=== PATIENT | female | born 2005 | race Caucasian/White ===

== ENCOUNTER 2023-03-11 07:27 | Emergency (ER) | payer MEDICAID ==
[2023-03-11] MEDS ORDERED: LORazepam 1 MG Tab PO ONE (08:00)
== END 2023-03-11 10:25 | disposition home or self-care (01) ==
LOC: JD.ED 07:27
DX: O99.340 Other mental disorders complicating pregnancy, unspecified trimester (principal); F41.1 Generalized anxiety disorder; Z88.8 Allergy status to other drugs, medicaments and biological substances; Z3A.01 Less than 8 weeks gestation of pregnancy
CPT/HCPCS: 36415; 80053; 83735; 84443; 84703; 85025; 93005; 99285; A9270; 93010; 99283

== ENCOUNTER 2023-06-22 06:00 | Emergency (ER) | payer MEDICAID | END 2023-06-22 06:35 | disposition home or self-care (01) | LOC: JD.ED 06:00 | DX: O99.891 Other specified diseases and conditions complicating pregnancy (principal); R07.89 Other chest pain | CPT/HCPCS: 93005; 93010; 99283; 99284 ==

== ENCOUNTER 2023-11-23 18:42 | Inpatient (IN) | payer MEDICAID ==
[2023-11-23] MEDS ORDERED: Nalbuphine HCl 10 MG/ 1ML Amp IVPUSH PRN (19:08)
[2023-11-23] MEDS ORDERED: Lidocaine 1% 50 ML MDV INJECT PRN (19:08)
[2023-11-23] MEDS ORDERED: Sodium Chloride 0.9% 10 ML Syringe FLUSH PRN (19:08)
[2023-11-23] MEDS ORDERED: Misoprostol 25 MCG (1/4 of 100 MCG) Tab VAG ONE (19:08)
[2023-11-23] MEDS ORDERED: Oxytocin/Lactated Ringers 30 UNIT/500 ML BAG IV SCH (19:15)
[2023-11-23 19:27] LABS: BASOPHILS PERCENT AUTO 0.2 % (0.0-1.0); EOSINOPHILS ABSOLUTE AUTO 0.2 K/mm3 (0.0-0.4); EOSINOPHILS PERCENT AUTO 1.9 % (0.0-6.0); HEMATOCRIT 34.7 % (37.0-47.0); HEMOGLOBIN 11.9 gm/dl (12.0-16.0); IMMATURE GRAN ABSOLUTE AUTO 0.05 K/mm3 (0.00-0.05); IMMATURE GRAN PERCENT AUTO 0.5 % (0.0-0.4); MEAN CORPUSCULAR HEMOGLOBIN 32.6 pg (28.0-32.0); MEAN CORPUSCULAR HGB CONC 34.3 g/dl (32.0-36.0); MEAN CORPUSCULAR VOLUME 95.1 fl (83.0-99.0); MEAN PLATELET VOLUME 10.2 fl (9.4-12.3); MONOCYTES ABSOLUTE AUTO 0.7 K/mm3 (0.0-0.8); MONOCYTES PERCENT AUTO 7.4 % (0.0-8.0); PLATELET COUNT,PLT 183 K/mm3 (150-400); RED BLOOD CELL COUNT 3.65 M/mm3 (4.10-5.30); WHITE BLOOD CELL COUNT,WBC 9.94 K/mm3 (3.9-11.3)
[2023-11-23] MEDS ORDERED: Calcium Carbonate 500 MG Tab.Chew PO PRN (21:44)
[2023-11-23] MEDS ORDERED: Promethazine 25 MG Tab PO PRN (22:25)
[2023-11-23] MEDS: Lactated Ringers 1,000 ML IV SCH (23:29)
[2023-11-24] MEDS: Misoprostol 25 MCG (1/4 of 100 MCG) Tab PO SCH ×3 (00:35→07:43)
[2023-11-24] MEDS ORDERED: Oxytocin/Lactated Ringers 30 UNIT/500 ML BAG IV SCH ×3 (00:45→19:15)
[2023-11-24] MEDS ORDERED: Bupivacaine/fentaNYL/NS 100 ML Bag EPIDUR PRN (00:56)
[2023-11-24] MEDS ORDERED: diphenhydrAMINE 50 MG/ML SDV IVPUSH PRN (00:56)
[2023-11-24] MEDS ORDERED: fentaNYL 100 MCG/2 ML SDV EPIDUR PRN (00:56)
[2023-11-24] MEDS ORDERED: ePHEDrine 50 MG/ML SDV IVPUSH PRN (00:56)
[2023-11-24] MEDS: Lactated Ringers 1,000 ML IV SCH ×3 (01:15→04:31)
[2023-11-24] MEDS: Sodium Chloride 0.9% 10 ML Syringe FLUSH SCH ×2 (07:44→13:50)
[2023-11-24] MEDS ORDERED: Witch Hazel Medicated Pads 40/Jar TOP PRN (10:27)
[2023-11-24] MEDS ORDERED: Hydrocortisone Acetate 25 MG Supp RECTAL PRN (10:27)
[2023-11-24] MEDS ORDERED: Acetaminophen 325 MG Tab PO PRN (10:27)
[2023-11-24] MEDS ORDERED: Benzocaine/Menthol 20%-0.5% Spray 78 GM Cannister TOP PRN (10:27)
[2023-11-24] MEDS: buPROPion 150 MG Tab.ER PO SCH (16:52)
[2023-11-24] MEDS: Nitrofurantoin Monohydrate/Macrocrystalline 100 MG Cap PO SCH (16:52)
[2023-11-24] MEDS: Ibuprofen 600 MG Tab PO PRN (19:24)
[2023-11-25] MEDS: Ibuprofen 600 MG Tab PO PRN (09:44)
[2023-11-25] MEDS: Nitrofurantoin Monohydrate/Macrocrystalline 100 MG Cap PO SCH ×2 (10:42→21:17)
[2023-11-25] MEDS: Prenatal Multivitamin with Calcium/Folic Acid/Iron Tab PO SCH (10:43)
[2023-11-25] MEDS: buPROPion 150 MG Tab.ER PO SCH (10:43)
[2023-11-26] MEDS: Prenatal Multivitamin with Calcium/Folic Acid/Iron Tab PO SCH (17:29)
[2023-11-26] MEDS: Nitrofurantoin Monohydrate/Macrocrystalline 100 MG Cap PO SCH (17:29)
[2023-11-26] MEDS: buPROPion 150 MG Tab.ER PO SCH (17:30)
== END 2023-11-26 13:15 | disposition home or self-care (01) | DRG 806 ==
LOC: JD.OB 18:42 → OBSVTOIN 11-24 10:13 → UNDODISIN 11-25 13:15 → UNDODISOB 11-26 13:15
PROVIDERS: ADMIT Obstetrics & Gynecology; ATTEND Obstetrics & Gynecology
PROC: 10E0XZZ Delivery of Products of Conception, External Approach (ICD-10-PCS; principal; 2023-11-24)
PROC: 0HQ9XZZ Repair Perineum Skin, External Approach (ICD-10-PCS; 2023-11-24)
PROC: 10907ZC Drainage of Amniotic Fluid, Therapeutic from Products of Conception, Via Natural or Artificial Opening (ICD-10-PCS; 2023-11-24)
PROC: 3E0R3BZ Introduction of Anesthetic Agent into Spinal Canal, Percutaneous Approach (ICD-10-PCS; 2023-11-24)
PROC: 00HU33Z Insertion of Infusion Device into Spinal Canal, Percutaneous Approach (ICD-10-PCS; 2023-11-24)
DX: O23.43 Unspecified infection of urinary tract in pregnancy, third trimester (principal); N39.0 Urinary tract infection, site not specified; Z37.0 Single live birth; O69.81X0 Labor and delivery complicated by cord around neck, without compression, not applicable or unspecified; O70.0 First degree perineal laceration during delivery; Z3A.40 40 weeks gestation of pregnancy; O48.0 Post-term pregnancy; O99.344 Other mental disorders complicating childbirth; F41.9 Anxiety disorder, unspecified; O99.334 Smoking (tobacco) complicating childbirth; F17.290 Nicotine dependence, other tobacco product, uncomplicated
CPT/HCPCS: 36415; 51701; 51702; 51798; 59025; 59409; 85025; 86592; 86850; 86900; 86901; A9270-GY; C1726; C1758; J3010; J3490; J7120; J7999; J8597

== ENCOUNTER 2024-04-25 22:57 | Emergency (ER) | payer MEDICAID ==
[2024-04-25 23:43] LABS: BASOPHILS PERCENT AUTO 0.4 % (0.0-1.0); EOSINOPHILS ABSOLUTE AUTO 0.1 K/mm3 (0.0-0.4); EOSINOPHILS PERCENT AUTO 1.3 % (0.0-6.0); HEMATOCRIT 38.3 % (37.0-47.0); HEMOGLOBIN 12.8 gm/dl (12.0-16.0); IMMATURE GRAN ABSOLUTE AUTO 0.02 K/mm3 (0.00-0.05); IMMATURE GRAN PERCENT AUTO 0.2 % (0.0-0.4); LYMPHOCYTES ABSOLUTE AUTO 2.2 K/mm3 (1.0-4.8); LYMPHOCYTES PERCENT AUTO 26.5 % (24.0-44.0); MEAN CORPUSCULAR HEMOGLOBIN 29.9 pg (28.0-32.0); MEAN CORPUSCULAR HGB CONC 33.4 g/dl (32.0-36.0); MEAN CORPUSCULAR VOLUME 89.5 fl (83.0-99.0); MEAN PLATELET VOLUME 10.4 fl (9.4-12.3); MONOCYTES ABSOLUTE AUTO 0.5 K/mm3 (0.0-0.8); MONOCYTES PERCENT AUTO 5.8 % (0.0-8.0); NEUTROPHILS ABSOLUTE AUTO 5.4 K/mm3 (1.8-7.7); NEUTROPHILS PERCENT AUTO 65.8 % (41.0-71.0); PLATELET COUNT,PLT 229 K/mm3 (150-400); RED BLOOD CELL COUNT 4.28 M/mm3 (4.10-5.30); WHITE BLOOD CELL COUNT,WBC 8.26 K/mm3 (3.9-11.3)
[2024-04-26 00:04] LABS: HCG QUALITATIVE,SERUM NEGATIVE (NEGATIVE)
[2024-04-26 00:11] LABS: PRO B-TYPE NATRIUR PEPT,BNPPRO 41 pg/mL (0-125)
[2024-04-26 00:17] LABS: A/G RATIO 1.2 (1-2); ALANINE AMINOTRANSFERASE,ALT 34 U/L (14-59); ALBUMIN 4.1 g/dl (3.4-5.0); ALKALINE PHOSPHATASE 69 U/L (46-116); ANION GAP 14.4 (5-15); ASPARTATE AMNIOTRANSFERASE,AST 25 U/L (15-37); BILIRUBIN TOTAL 0.4 mg/dL (0.2-1.0); BLOOD UREA NITROGEN,BUN 16 mg/dL (7-18); CALCIUM 9.4 mg/dL (8.5-10.1); CARBON DIOXIDE,CO2 25 mEq/L (21-32); CHLORIDE,CL 103 mEq/L (98-107); EST CRCL DRUG DOSING (CG) 97.04 mL/min; ESTIMATED GFR 83 mL/min (>60); GLUCOSE RANDOM 90 mg/dL (70-99); LIPASE 20 U/L (16-77); POTASSIUM,K 3.4 mEq/L (3.5-5.1); PROTEIN TOTAL,TP 7.6 g/dl (6.4-8.2); SODIUM,NA 139 mEq/L (136-145)
[2024-04-26 00:21] LABS: TROPONIN I HIGH SENSITIVITY < 4 pg/mL (<=51)
== END 2024-04-26 01:08 | disposition home or self-care (01) ==
LOC: JD.ED 22:57
DX: R07.9 Chest pain, unspecified (principal); Z79.2 Long term (current) use of antibiotics; Z79.899 Other long term (current) drug therapy; Z88.8 Allergy status to other drugs, medicaments and biological substances
CPT/HCPCS: 36415; 71045; 71045-26; 80053; 83690; 83880; 84484; 84703; 85025; 85379; 93005; 99285

== ENCOUNTER 2025-09-08 14:47 | Emergency (ER) | payer MEDICAID | END 2025-09-08 17:50 | disposition home or self-care (01) | LOC: JD.ED 14:47 | DX: J15.7 Pneumonia due to Mycoplasma pneumoniae (principal); J45.909 Unspecified asthma, uncomplicated; F17.200 Nicotine dependence, unspecified, uncomplicated; Z79.899 Other long term (current) drug therapy; Z88.8 Allergy status to other drugs, medicaments and biological substances | CPT/HCPCS: 36415; 71046; 71046-26; 86738; 87428-QW; 99283; 99285 ==